=== PATIENT | female | born 1985 | race Caucasian/White ===

== ENCOUNTER 2019-07-29 08:49 | Emergency (ER) | payer MEDICAID ==
[~2019-07-29] VITALS: Ht 162.6 cm; Wt 63.0 kg
[~2019-07-29 08:49] MED LIST: CHOL100046 PO; LORA10TA7 PO
[2019-07-29 08:52] VITALS: BP 123/71
== END 2019-07-29 10:22 | disposition home or self-care (01) ==
LOC: ER 08:49
DX: M25.511 Pain in right shoulder (principal); G43.909 Migraine, unspecified, not intractable, without status migrainosus; F12.90 Cannabis use, unspecified, uncomplicated; M79.7 Fibromyalgia; Z88.8 Allergy status to other drugs, medicaments and biological substances; Z79.899 Other long term (current) drug therapy; X50.0XXA Overexertion from strenuous movement or load, initial encounter; Y93.89 Activity, other specified; Y92.89 Other specified places as the place of occurrence of the external cause; Y99.9 Unspecified external cause status
CPT/HCPCS: 73030; 99283